=== PATIENT | female | born 1955 | race Asian ===

== ENCOUNTER 2017-05-11 05:33 | Day surgery (SDC) | payer OTHER ==
[~2017-05-11] VITALS: Ht 152.4 cm; Wt 69.8 kg
[2017-05-11 06:24] VITALS: BP 137/80
[2017-05-11 06:51] VITALS: BP 137/80
[2017-05-11 11:33] VITALS: BP 133/88
== END 2017-05-11 11:20 | disposition home or self-care (01) ==
LOC: DS 05:33
PROVIDERS: Ophthalmology
PROC: 08RJ3JZ Replacement of Right Lens with Synthetic Substitute, Percutaneous Approach (ICD-10-PCS; principal; 2017-05-11 07:30)
DX: H25.091 Other age-related incipient cataract, right eye (principal); E11.9 Type 2 diabetes mellitus without complications; I10 Essential (primary) hypertension; E78.5 Hyperlipidemia, unspecified; Z79.84 Long term (current) use of oral hypoglycemic drugs
CPT/HCPCS: 82962; C1780; J2001; J2250; J3010; J7040

== ENCOUNTER 2017-08-22 06:02 | Day surgery (SDC) | payer OTHER ==
[~2017-08-22] VITALS: Ht 162.6 cm; Wt 69.8 kg
[2017-08-22 06:37] VITALS: BP 141/78
[2017-08-22 10:36] VITALS: BP 120/72
== END 2017-08-22 10:30 | disposition home or self-care (01) ==
LOC: DS 06:02 → OR 07:30 → DS 08:30
PROVIDERS: Ophthalmology
PROC: 08RK3JZ Replacement of Left Lens with Synthetic Substitute, Percutaneous Approach (ICD-10-PCS; principal; 2017-08-22 08:30)
DX: H25.12 Age-related nuclear cataract, left eye (principal); H52.202 Unspecified astigmatism, left eye; E11.9 Type 2 diabetes mellitus without complications; Z98.41 Cataract extraction status, right eye; Z96.1 Presence of intraocular lens
CPT/HCPCS: 82962; J2001; J2250; J3010; J7040

== ENCOUNTER 2019-09-05 11:14 | Emergency (ER) | payer OTHER ==
[~2019-09-05] VITALS: Ht 152.4 cm; Wt 65.3 kg
[2019-09-05 16:07] VITALS: BP 127/83
== END 2019-09-05 16:07 | disposition home or self-care (01) ==
LOC: ED 11:14
DX: B34.9 Viral infection, unspecified (principal); H10.31 Unspecified acute conjunctivitis, right eye; E11.9 Type 2 diabetes mellitus without complications; I10 Essential (primary) hypertension; Z88.0 Allergy status to penicillin; Z76.0 Encounter for issue of repeat prescription; Z98.890 Other specified postprocedural states